=== PATIENT | male | born 1975 | race African-American/Black ===

== ENCOUNTER 2020-01-12 05:07 | Day surgery (SDC) | payer OTHER ==
[2020-01-11 14:40] VITALS: BMI 30.7
--- NOTE | 2020-01-11 14:41 | HP ---
Satellite H - Chief Complaint Chief Complaint: right achilles pain - Past Medical History Allergies/Adverse Reactions: Allergies Allergy/AdvReac Type Severity Reaction Status Date / Time Shellfish Allergy Severe Difficulty Verified 11/19/13 14:20 Breathing - Current Medications Current Medications: Home Medications Medication Instructions Recorded Unobtainable Home Med List 0 dose .ROUTE UTDICT 11/19/13 Satellite Physical Exam - Physical Examination General Appearance: Well Nourished, Well Developed, Alert & Oriented x3 ENT: Clear Lung: Normal air movement Extremities: Other (right ankle- + swelling, + ttp, decr rom, nvi) Neurological: Intact, Alert, Oriented Satellite Impression/Plan - Impression/Plan Impression: right achilles tendon ossification Operative Procedure: right achilles tendon debridement Date to be Performed: 01/11/20
[2020-01-12] MEDS ORDERED: PROPOFOL 20 ML ONE (07:37)
[2020-01-12] MEDS ORDERED: MIDAZOLAM HCL 2 MG/2 ML SINGLE DOSE VIAL ONE ×3 (07:37→08:20)
[2020-01-12] MEDS ORDERED: ceFAZolin 2 GRAM PREMIX BAG IVPB ONE (08:36)
[2020-01-12] MEDS ORDERED: ceFAZolin SODIUM 1 GM VIAL ONE (08:37)
--- NOTE | 2020-01-12 09:18 | OP ---
Operative Note - Note: Operative Date: 01/12/20 ([facility]) Pre-Operative Diagnosis: right achilles ossicle Operation: right achilles debridement, excision of calcaneal osteophyte, achilles tendon repair Post-Operative Diagnosis: Same as Pre-op Surgeon: Dae Kennedy Gripper Installer: Alvaro Weston Anesthesia: General, Local Specimens Removed: ossicle
[2020-01-12] MEDS ORDERED: oxyCODONE HCL 5 MG TABLET PO PRN ×2 (10:18)
[2020-01-12] MEDS ORDERED: ONDANSETRON 4 MG/2 ML VIAL IVPUSH PRN (10:18)
[2020-01-12] MEDS ORDERED: LACTATED RINGERS SOLUTION 1,000 ML IV SCH (10:30)
--- NOTE | 2020-01-12 11:54 | OP ---
DATE OF OPERATION: 01/12/2020 PREOPERATIVE DIAGNOSIS: Right Achilles tendon tear, calcifications, chronic inflammation. POSTOPERATIVE DIAGNOSIS: Right Achilles tendon tear, calcifications, chronic inflammation. PROCEDURE: Right Achilles tendon repair, debridement, removal of bone spur. SURGEON: Dae Kennedy MD CARBURIZING FURNACE OPERATOR: Alvaro Weston MD SECOND CARBURIZING FURNACE OPERATOR: THERESE Astorga DRAINS: None. COMPLICATIONS: None. SPECIMEN: Bone and tendon, right Achilles tendon. ANESTHESIA: Right lower extremity regional block. HUNTING GUIDE: Mario Alanis CRNA ANESTHESIOLOGIST: Anesthesia with Andrea Santiago MD FLUID REPLACEMENT: Plasma-Lyte 700 mL. INDICATIONS: This patient is a 45-year-old male with preoperative diagnosis of chronic right Achilles tendon pain, partial tear and large calcification after a basketball accident 1 year ago. He understands the potential risks, complications, alternatives and benefits of surgical versus nonsurgical treatment. The patient understands that his Achilles may never be perfect. He may need physical therapy, he may not. PROCEDURE IN DETAIL: The patient is brought to the operating room. Peripheral IV placed. IV sedation given. Two g of Ancef were given. A right lower extremity regional block was performed. The patient had MAC anesthesia induced. He was placed into the supine position. The tourniquet was applied to the right upper thigh. The right lower extremity was prepped and draped in usual sterile fashion, elevated, exsanguinated with an Esmarch bandage. Tourniquet inflated to 275 mmHg. A small curvilinear lazy S incision was marked out with a marking pen and made with a No. 15 scalpel blade. Subcutaneous hemostasis was achieved with a Bovie cautery. Dissection done down to the Achilles tendon sheath which was quite expanded from the mass underneath. The sheath was opened, the flaps raised medially and laterally for later repair. This revealed a large ball of chronic inflammatory tissue, a portion of which was removed and passed off the field as part of the specimen. Next, I could see the Achilles tendon itself. A longitudinal slit was made with a No. 15 scalpel blade directly on top of the bone spur. Medial and lateral dissection was done with the No. 15 scalpel blade, Metzenbaum scissors and the Bovie cautery. A Weitlaner retractor was placed into the wound splitting the Achilles tendon, revealing a very large calcaneal bone spur. Under direct visualization using combination of osteotome and the rongeur I removed the bone and the surrounding inflammatory soft tissue and passed off the field as specimen. Next, I used a rasp to take off small ridges to smooth down the posterior aspect of the calcaneus at the base of the bone spur. X-rays were taken before and after. The x-rays after debridement showed there was no bone spur left at all and the shape of the calcaneus looked quite good with no ridges or hard edges. The area was copiously irrigated and washed out. Closure was done with 0 Vicryl reapproximating the 2 sides of the Achilles tendon that had been split by the bone spur. Next, in a standard technique I put in an Arthrex SwiveLock anchor into the calcaneus. I then used 2 FiberWire suture tapes going up and down through the medial and lateral aspect of the Achilles tendon. It came down quite nicely and I was able to loop these through the SwiveLock anchor and put it down into the calcaneus. This brought the Achilles down quite nicely. It also helped with the [id number] repair. Most of the Achilles tendon was still attached even prior to the SwiveLock anchor bringing the rest down. I then used 2-0 Vicryl again to close the rest of the Achilles tendon over the SwiveLock anchor. It all came down quite nicely. The ankle was put into about 10 degrees of plantarflexion and all tension was taken off the repair. The area was copiously irrigated and washed out. I then closed the Achilles tendon sheath with 2-0 Vicryl over the repair, closed the deep dermal layer with 2-0 Vicryl and reapproximated the skin with drake. The area was then washed and dried, covered with Xeroform, 4 x 4 gauze, Webril and a 6-inch posterior splint was applied wrapped with 2 Bruce bandages. Tourniquet was taken down after total tourniquet time of 45 minutes. There were no complications during the case. Patient tolerated the procedure well and was brought to the ambulatory recovery room in stable condition. Jayme [id number]
[2020-01-12] MEDS ORDERED: DEXAMETHASONE SOD PHOSPHATE 4 MG/1 ML VIAL ONE (12:41)
[2020-01-12 14:29] VITALS: BP 130/77; PULSE 72; TEMP 98.6
--- NOTE | 2020-01-17 16:39 | PATH ---
Surgical Pathology Report Patient Name: LAW ARMSTRONG Med. Rec. #: [id number] /Age/Gender: 1975 (Age: 45) / M Account: [id number] [facility] Taken: 01/12/2020 Received: 01/12/2020 Reported: 01/17/2020 Physicians: Jayme Ramirez M.D. Specimen(s) Received RIGHT ACHILLES TISSUE AND BONE Clinical History Right Achilles mass Final Diagnosis RIGHT ACHILLES TISSUE AND BONE, EXCISION: PORTIONS OF FIBROADIPOSE TISSUE WITH CHRONIC INFLAMMATION AND FOCAL MYXOID DEGENERATIVE CHANGE. SEPARATE PORTIONS OF BONE AND CARTILAGE WITH DEGENERATIVE CHANGE. Electronically Signed Demarcus Schofield M.D. Gross Description Received in formalin labeled "right Achilles tissue and bone," is a 4 x 4 x 0.3 cm aggregate of soft tissue and bone fragments. The specimen is entirely submitted in 2 cassettes following decalcification of bone. JASMIN/01/13/2020 erin/01/13/2020
== END 2020-01-12 13:30 | disposition home or self-care (01) ==
LOC: JASU-SURG 05:07
PROVIDERS: ATTEND Orthopaedic Surgery
PROC: 0QBL0ZZ Excision of Right Tarsal, Open Approach (ICD-10-PCS; 2020-01-12)
PROC: 0LQN0ZZ Repair Right Lower Leg Tendon, Open Approach (ICD-10-PCS; principal; 2020-01-12 08:00)
DX: S86.011A Strain of right Achilles tendon, initial encounter (principal); X58.XXXA Exposure to other specified factors, initial encounter; Y93.9 Activity, unspecified; Y92.9 Unspecified place or not applicable; Y99.9 Unspecified external cause status; M77.31 Calcaneal spur, right foot
CPT/HCPCS: 76000-TC-FY; 88304-TC; 88311-TC; 94760; 97116-GP